=== PATIENT | male | born 1960 | race Asian ===

== ENCOUNTER 2023-07-09 07:43 | Day surgery (SDC) | payer BC ==
[2023-07-05 11:18] VITALS: BMI 26.6
[2023-07-09 09:51] VITALS: RESP 20; TEMP 97.7
[2023-07-09 10:15] VITALS: BP 124/74; PULSE 76
== END 2023-07-09 10:16 | disposition home or self-care (01) ==
LOC: FASU-ENDO 07:43
PROVIDERS: ATTEND Internal Medicine Gastroenterology
PROC: 0DJD8ZZ Inspection of Lower Intestinal Tract, Via Natural or Artificial Opening Endoscopic (ICD-10-PCS; principal; 2023-07-09 09:19)
DX: Z12.11 Encounter for screening for malignant neoplasm of colon (principal); Z83.719 Family history of colon polyps, unspecified